=== PATIENT | male | born 1960 | race African-American/Black ===

== ENCOUNTER 2017-02-09 13:28 | Observation (INO) ==
[2017-02-09] MEDS ORDERED: NITROGLYCERIN 2% OINT 1 INCH/GM PACK TOP STA (13:47)
[2017-02-09] MEDS ORDERED: ASPIRIN 325 MG TABLET PO STA (13:47)
[2017-02-09] MEDS ORDERED: METOPROLOL TARTRATE 5 MG/5 ML VIAL IV STA (13:47)
[2017-02-09] MEDS ORDERED: NITROGLYCERIN SL 0.4 MG TABLET SL PRN (13:47)
--- NOTE | 2017-02-09 13:51 | EKG Report ---
Stationary ECG Study [facility] ER Test Date: 02/09/2017 1:35:39 PM Pat Name: ALEJANDRO GARCIA Department: Room: Gender: M [employer]: : [id number] Requested by: Robin Adler Order Number: [id number] Reading MD: AME SHAY Intervals [place] Rate: 84 P: 55 TN: 120 QRS: -2 QRSD: 73 T: -14 QT: 386 QTc: 427 Interpretive Statements SINUS RHYTHM WITH SINUS ARRHYTHMIA VOLTAGE CRITERIA FOR LVH Electronically Signed On 02-10-17 18:31:41 CDT by AME SHAY [email or web address]
[2017-02-09 14:03] LABS: Basophils % 0.3 % (0.0-0.8); Eosinophils % 0.2 % (0.00-10.9); Hematocrit 35.5 VOL% (42.0-52.0); Hemoglobin 11.9 GM/DL (14.0-18.0); Immature Granulocytes % 0.2 %; Immature Granulocytes Absolute 0.01 #; Lymphocytes # 1.5 10*3/uL (1.4-4.0); Lymphocytes % 26.4 % (21.2-54.2); Mean Corpuscular HGB Conc 33.5 GM/DL (32-36); Mean Corpuscular Hemoglobin 26 PG (27-34); Mean Corpuscular Volume 77.2 FL (87-102); Mean Platelet Volume 10.3 FL (9.6-12.0); Monocytes # 0.4 10*3/uL (0.11-0.8); Monocytes % 6.8 % (1.7-12.7); Neutrophils # 3.8 10*3/uL (1.4-7.4); Neutrophils % 66.1 % (38.7-73.9); Platelet Count 263 T/CUMM (130-400); Red Cell Distribution Width 13.3 % (9.3-17.3); White Blood Count 5.7 T/CUMM (4-12)
--- NOTE | 2017-02-09 14:04 | XRay Report ---
XR chest 1V portable Indication: Chest pain Comparison: 07 February 2009 Findings: The heart and mediastinum are normal in size and configuration. The pulmonary vascularity is normal in caliber. No lung infiltrates, effusions, pneumothorax or other abnormality is demonstrated. Impression: Normal chest x-ray PROCEDURE INTERPRETED AT [facility] DEPARTMENT OF RADIOLOGY Final Report Signed by: Dr. Aleks Zavala
[2017-02-09] MEDS ORDERED: NITROGLYCERIN 2% OINT 1 INCH/GM PACK TOP ONE (14:06)
[2017-02-09] MEDS ORDERED: METOPROLOL TARTRATE 5 MG/5 ML VIAL IV ONE (14:07)
[2017-02-09] MEDS ORDERED: ASPIRIN 325 MG TABLET ONE (14:07)
[2017-02-09] MEDS ORDERED: NITROGLYCERIN SL 0.4 MG TABLET SL ONE (14:07)
[2017-02-09 14:31] LABS: Albumin 3.7 G/DL (3.4-5.0); Bilirubin,Total 0.4 MG/DL (0.2-1.0); Calcium 9.5 MG/DL (8.5-10.1); Osmolality,Calculated 279.3 MOS/KG (273-304); Potassium 3.8 MMOL/L (3.5-5.1); Total Protein 7.7 G/DL (6.4-8.3)
--- NOTE | 2017-02-09 15:36 | Emergency Department Note ---
Ryne Larose Brittany, am scribing for, and in the presence of, Miguel Molina MD 13:51. Jesse Larose Doug C, MD, personally performed the services described in this documentation, ascribed by Joanne Michele in my presence, and it is both accurate and complete 413 . Arrival - Arrival Chief Complaint: Chest Pain Stated Complaint: chest pain ED Nursing Triage Note: C/o sharp, right side chest pain radiating down right arm-onset 1230 today. Reports pain worse with movement and palpation. Denies SOB or N/V. Mode of Arrival: Wheelchair Limitations: No Limitations Source: Patient, Family Time Seen by Provider: 02/09/17 13:40 - History of Present Illness HPI Narrative: Patient's a 56-year-old black male who presented to the emergency room complaining of right sided chest pain that started approximately an hour ago. 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 Patient states the pain is a sharp stabbing pain in his right chest and radiates down his right arm. He had some nausea and slight diaphoresis but had no vomiting or shortness of breath. He did note that he had some increased pain when he did take a deep breath. Patient states his pain is much better now but still persisting. He is never had anything like this before and has no history of heart problems. There is a history of lumbar disc disease but no cervical disc problems. There is a positive family history in 1 of his brothers had a heart attack in his 60s. Onset (ago): hour(s) (Started at 1230) Consistency: constant Severity: moderate Quality: stabbing, sharp Allergies/Adverse Reactions: Allergies Allergy/AdvReac Type Severity Reaction Status Date / Time No Known Allergies Allergy Verified 02/09/17 13:37 Home Medications: Home Medications Medication Instructions Recorded Confirmed Type Gabapentin [Gabapentin] 300 mg PO TID 02/09/17 02/09/17 History Morphine Sulfate [Morphine ER Cap] 45 mg PO QAM 02/09/17 02/09/17 History Oxycodone HCl/Acetaminophen 1 each PO BID 02/09/17 02/09/17 History [Percocet 7.5-325 mg Tablet] Tizanidine HCl [Zanaflex] 4 mg PO DAILY 02/09/17 02/09/17 History Review of System - Review of System 12 point system: reviewed and no additional remarkable complaints except as stated - Review of System Constitutional: Present: diaphoresis Cardiovascular: Present: chest pain. Absent: dyspnea on exertion Gastrointestinal: Present: nausea Medical,Surgical,& Family Hx - Medical History Musculoskeletal: History of: Back/Neck Problems (chronic lower back pain) - Surgical History Orthopedic Surgeries: Surgical HX of;: Spinal Surgery - Family History Family History: Reports;: Family Heart Disease (Brother of a heart attack in his 60s) - Social History Smoking Status: Never smoker Frequency of Alcohol Use: None Type of Drug Use: None Exam Vital Signs: Vital Signs Temperature 97.9 F 02/09/17 13:34 Pulse Rate 84 02/09/17 13:34 Respiratory Rate 16 02/09/17 13:34 Blood Pressure 157/91 02/09/17 13:34 O2 Sat by Pulse Oximetry 97 02/09/17 13:34 - General General appearance: alert, in no apparent distress - Head Head exam: Present: atraumatic, normocephalic, normal inspection - Eye Eye exam: Present: normal appearance, PERRL, EOMI. Absent: scleral icterus, conjunctival injection, nystagmus, miosis, mydriasis - ENT ENT exam: Present: normal exam, normal oropharynx, mucous membranes moist, normal external ear exam - Neck Neck exam: Present: normal inspection, full ROM, trachea midline. Absent: tenderness, meningismus, lymphadenopathy, thyromegaly - Chest Chest inspection: Present: symmetric chest wall rise, tenderness (Chest wall tenderness). Absent: rash, abscess - Respiratory Respiratory exam: Present: normal lung sounds bilaterally. Absent: prolonged expiratory phase, rales, respiratory distress, rhonchi, stridor, wheezes - Cardiovascular Cardiovascular exam: Present: regular rate, normal rhythm, normal heart sounds. Absent: murmur, rubs, gallop, clicks, JVD - Abdominal Exam Abdominal exam: Present: soft, normal bowel sounds. Absent: distention, tenderness, guarding, rebound, rigidity - Rectal Exam Rectal exam: Present: deferred - Extremities Exam Extremities exam: Present: normal inspection, full ROM, normal capillary refill. Absent: tenderness, pedal edema, joint swelling, calf tenderness - Back Exam Back exam: Present: normal inspection, full ROM. Absent: tenderness, muscle spasm, rashes - Neurological Exam Neurological exam: Present: alert, oriented X3, CN II-XII intact. Absent: motor sensory deficit - Psychiatric Psychiatric exam: Present: normal affect, normal mood. Absent: depressed, agitated, anxious, flat affect, manic - Skin Skin exam: Present: warm, dry, intact, normal color. Absent: rash, cyanosis, diaphoresis, erythema, pallor, mottled Course Course Narrative: Patient's clinical presentation, laboratory and radiograph findings were discussed with Carmen who is covering the hospitalist service. She will arrange patient be seen in emergency room and evaluated for admission. Patient is now pain-free. Results - Labs CBC & BMP: 02/09/17 13:51 02/09/17 13:51 Lab Results: I have reviewed the patients labs Labs: Laboratory Tests 02/09/17 02/09/17 02/09/17 13:51 13:51 13:51 D-Dimer, Quantitative <= 0.5 Sodium 141 Potassium 3.8 Chloride 108 H Carbon Dioxide 25 Anion Gap 11.8 BUN 10 Creatinine 1.10 GFR Calculation 112 BUN/Creatinine Ratio 9.00 Glucose 101 Calculated Osmolality 279.3 Calcium 9.5 Total Bilirubin 0.40 AST 20 ALT 19 Alkaline Phosphatase 97 Troponin I < 0.015 Total Protein 7.7 Albumin 3.7 Globulin 4.0 H Albumin/Globulin Ratio 0.9 L Laboratory Tests 02/09/17 02/09/17 02/09/17 13:51 13:51 13:51 WBC 5.7 RBC 4.60 Hgb 11.9 L Hct 35.5 L MCV 77.2 L MCH 26 L MCHC 33.5 RDW 13.3 Plt Count 263 MPV 10.3 Neut % (Auto) 66.1 Lymph % (Auto) 26.4 [place] % (Auto) 6.8 Eos % (Auto) 0.2 Baso % (Auto) 0.3 Neut # (Auto) 3.8 Lymph # (Auto) 1.5 [place] # (Auto) 0.4 Eos # (Auto) 0.0 Baso # (Auto) 0.0 Immature Gran % 0.2 Nucleated RBC % 0.0 Immature Gran # 0.01 Nucleated RBCs # 0.00 D-Dimer, Quantitative <= 0.5 Sodium 141 Potassium 3.8 Chloride 108 H Carbon Dioxide 25 Anion Gap 11.8 BUN 10 Creatinine 1.10 GFR Calculation 112 BUN/Creatinine Ratio 9.00 Glucose 101 Calculated Osmolality 279.3 Calcium 9.5 Total Bilirubin 0.40 AST 20 ALT 19 Alkaline Phosphatase 97 Troponin I Total Protein 7.7 Albumin 3.7 Globulin 4.0 H Albumin/Globulin Ratio 0.9 L 02/09/17 13:51 WBC RBC Hgb Hct MCV MCH MCHC RDW Plt Count MPV Neut % (Auto) Lymph % (Auto) [place] % (Auto) Eos % (Auto) Baso % (Auto) Neut # (Auto) Lymph # (Auto) [place] # (Auto) Eos # (Auto) Baso # (Auto) Immature Gran % Nucleated RBC % Immature Gran # Nucleated RBCs # D-Dimer, Quantitative Sodium Potassium Chloride Carbon Dioxide Anion Gap BUN Creatinine GFR Calculation BUN/Creatinine Ratio Glucose Calculated Osmolality Calcium Total Bilirubin AST ALT Alkaline Phosphatase Troponin I < 0.015 Total Protein Albumin Globulin Albumin/Globulin Ratio - EKG EKG results: interpreted by DANIEL, sinus rhythm (84 bpm), no acute changes - Diagnostic Findings Procedure: Chest x-ray: report reviewed by me (Normal Chest Xray. ) Disposition Clinical Impression: Atypical chest pain Case discussed with: patient, patient's family Disposition: Still a Patient Condition: Stable Time of Disposition: 15:36
--- NOTE | 2017-02-09 16:35 | Hospitalist History & Physical ---
<Tammy Vanegas - Last Filed: 02/09/17 17:14> Assessment and Plan (1) Atypical chest pain Status: Acute Assessment and plan: Admit to telemetry. CXR is stable. Cardiac monitoring. Serial cardiac enzymes and EKGs. Order Echo. Start daily asa. Consult cardiology. Current Visit: Yes (2) Chronic back pain Status: Chronic Assessment and plan: Pt. is seen by Dr. Jones for chronic back pain and has a back stimulator present. Current Visit: Yes History of Present Illness Chief complaint: chest pain History of present illness: Mr. Calderón is a 56 year old black male with a history of chronic back pain that presented to the ED today for further evaluation of chest pain. 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 He recalls returning back to his seat and immediately began to experience right sided chest pain. Pt. states that the pain radiated down his arm and into his fingers causing his arm to become numb. Pt. also began to sweat profusely. He denies vomiting, loss of consciousness, slurred speech, or any vision changes but does report feeling nauseous at the time. Pt. denies ever having anything like this happen to him before. He states that his brother did have a heart attack at the age of 60. Initial troponins are negative. CXR is stable. Pt's case has been discussed with Dr. Elkins and the patient will be admitted to the hospitalist service for a workup. Home Medications Medication Instructions Recorded Confirmed Type Gabapentin [Gabapentin] 300 mg PO TID 02/09/17 02/09/17 History Morphine Sulfate [Morphine ER Cap] 45 mg PO QAM 02/09/17 02/09/17 History Oxycodone HCl/Acetaminophen 1 each PO BID 02/09/17 02/09/17 History [Percocet 7.5-325 mg Tablet] Tizanidine HCl [Zanaflex] 4 mg PO DAILY 02/09/17 02/09/17 History Allergies Allergy/AdvReac Type Severity Reaction Status Date / Time No Known Allergies Allergy Verified 02/09/17 13:37 Medical,Surgical,& Family Hx - Medical History Musculoskeletal: History of: Back/Neck Problems (chronic lower back pain) - Surgical History Orthopedic Surgeries: Surgical HX of;: Spinal Surgery - Family History Family History: Reports;: Family Diabetes, Family Heart Disease (Brother of a heart attack in his 60s) - Social History Smoking Status: Never smoker Frequency of Alcohol Use: None Type of Drug Use: None Marital Status: Lives With:: Spouse Functional capacity: independent ambulation - Constitutional Constitutional: Absent: chills, fever(s), weakness - EENT Eyes: Absent: loss of vision, requires corrective lense Nose, mouth and throat: Absent: dysphagia, headache(s) - Cardiovascular Cardiovascular: Present: chest pain at rest, diaphoresis. Absent: dyspnea on exertion, edema, radiating jaw, neck or arm pain, lightheadedness - Respiratory Respiratory: Absent: cough - Gastrointestinal Gastrointestinal: Absent: abdominal pain, nausea, vomiting - Genitourinary Genitourinary: Absent: difficulty urinating, hematuria - Musculoskeletal Musculoskeletal: Present: back pain - Neurological Neurological: Absent: confusion - Psychiatric Psychiatric: Absent: anxiety, depression - Hematologic/Lymphatic Hematologic/Lymphatic: Absent: easy bleeding Exam - Constitutional Vitals: Period Temp Pulse Resp BP Sys/Foster Pulse Ox Last 24 Hr 97.9 F-97.9 F 70-84 16-19 122-163/78-91 97-98 General appearance: normal weight, no acute distress - Head Head exam: Present: normal inspection, normocephalic - Eye Eye exam: Present: EOMI Pupils: Present: CYNTHIA - Neck Neck exam: Present: normal inspection - Respiratory Respiratory exam: Present: clear to auscultation bilaterally. Absent: wheezes - Cardiovascular Cardiovascular exam: Present: regular rate and rhythm - GI/Abdominal GI/Abdominal exam: Present: normal bowel sounds, soft. Absent: tenderness - Extremities Exam Extremities exam: Present: normal capillary refill, full ROM. Absent: edema - Neurological Exam Neurological exam: Present: alert, oriented X3 - Psychiatric Psychiatric exam: Present: normal affect, normal mood - Skin Skin exam: Present: normal color, warm, dry Results - Labs CBC & BMP: 02/09/17 13:51 02/09/17 13:51 Lab Results: I have reviewed the past 24 hour labs <Pam Elkins - Last Filed: 02/09/17 20:18> History of Present Illness History of present illness: Mr. Calderón is a 56 year old male whose brother had a heart attack at the age of 60 presents with a right sided chest pain radiating down the right arm.First set of cardiac enzymes was negative.Patient was seen., examined and discussed with the APPLE TURNER. plan Telemetry serial cardiac enzymes stress test Cardiology consult ASA, bblockers, AECI, nitrates lipids, TSH, D-dimers, HbA1c GI, DVT prophylaxis Exam - Constitutional Vitals: Period Temp Pulse Resp BP Sys/Foster Pulse Ox Last 24 Hr 97.4 F-97.9 F 67-84 16-20 113-163/67-91 95-99 Results - Labs CBC & BMP: 02/09/17 13:51 02/09/17 13:51
[2017-02-09] MEDS ORDERED: ENOXAPARIN 40 MG/0.4 ML SYRINGE SUBCUT SCH (18:02)
[2017-02-09] MEDS ORDERED: ONDANSETRON 4 MG/2 ML VIAL IV PRN (18:02)
[2017-02-09] MEDS ORDERED: ACETAMINOPHEN 325 MG TABLET PO PRN (18:02)
[2017-02-09] MEDS ORDERED: DOCUSATE SODIUM 100 MG CAPSULE PO PRN (18:02)
[2017-02-09] MEDS ORDERED: PNEUMOCOCCAL VACCINE (23 VALENT) 0.5 ML VIAL IM ONE (18:28)
[2017-02-09] MEDS: METOPROLOL TARTRATE 25 MG TABLET PO SCH (21:53)
[2017-02-09 22:27] LABS: Apearance,Urine CLEAR (Clear); Bilirubin,Urine Negative (Negative); Blood, Urine Negative (Negative); Glucose,Urine (UA) Negative (Negative); Ketones,Urine Negative (Negative); Mucus,Urine Occasional /LPF (Occasional); Nitrite,Urine Negative (Negative); Protein,Urine Negative; RBC,Urine 1 /HPF (0-4); Squamous Epithelial Cell,Urine Occasional /HPF (0-10); Urine Color Yellow (Yellow); Urine Specific Gravity 1.014 (1.001-1.035); Urine Urobilinogen < 2.0 EU/DL (0.2-1.0); WBC,Urine 1 /HPF (0-6)
[2017-02-10 04:55] LABS: Basophils % 0.2 % (0.0-0.8); Eosinophils % 0.7 % (0.00-10.9); Hematocrit 32.8 VOL% (42.0-52.0); Hemoglobin 11.2 GM/DL (14.0-18.0); Immature Granulocytes % 0.2 %; Immature Granulocytes Absolute 0.01 #; Lymphocytes % 34.2 % (21.2-54.2); Mean Corpuscular HGB Conc 34.1 GM/DL (32-36); Mean Corpuscular Hemoglobin 26 PG (27-34); Mean Corpuscular Volume 77.4 FL (87-102); Mean Platelet Volume 10.3 FL (9.6-12.0); Monocytes # 0.6 10*3/uL (0.11-0.8); Monocytes % 9.8 % (1.7-12.7); Neutrophils # 3.1 10*3/uL (1.4-7.4); Neutrophils % 54.9 % (38.7-73.9); Platelet Count 241 T/CUMM (130-400); Red Blood Count 4.24 MC/CUMM (3.8-5.5); Red Cell Distribution Width 13.4 % (9.3-17.3); White Blood Count 5.7 T/CUMM (4-12)
[2017-02-10 05:33] LABS: Calcium 8.8 MG/DL (8.5-10.1); Magnesium 2.1 MG/DL (1.8-2.4); Osmolality,Calculated 283.1 MOS/KG (273-304); Potassium 3.9 MMOL/L (3.5-5.1); Risk Ratio 3.14; Thyroid Stimulating Hormone 0.353 uIU/ml (0.358-3.74); VLDL CHOLESTEROL 16.8 MG/DL
[2017-02-10] MEDS ORDERED: IBUPROFEN 600 MG TABLET PO PRN (06:09)
--- NOTE | 2017-02-10 08:59 | Hospitalist Progress Note ---
Assessment and Plan - Time spent with patient Time spent with patient: Less than 30 minutes (1) Atypical chest pain Status: Acute Assessment and plan: Patient troponin all negative. BNP 15. Cardiology is following. He is having a stress test this a.m. will repeat a.m. labs. Current Visit: Yes Hospitalist: Subjective Interval history: Patient verbalized feeling good this morning, "just hungry" patient verbalized having a stress test this a.m. Will follow up test and results. Denies chest pain, shortness of breath, fever or chills throughout the night. Exam - Constitutional Vitals: Period Temp Pulse Resp BP Sys/Foster Pulse Ox Last 24 Hr 97.4 F-99.9 F 54-84 16-20 113-163/67-91 94-99 General appearance: normal weight - Head Head exam: Present: normal inspection - Eye Eye exam: Present: EOMI Pupils: Present: CYNTHIA - Neck Neck exam: Present: normal inspection - Respiratory Respiratory exam: Present: clear to auscultation bilaterally. Absent: stridor, wheezes - Cardiovascular Cardiovascular exam: Present: regular rate and rhythm - GI/Abdominal GI/Abdominal exam: Present: normal bowel sounds. Absent: ascites, tenderness, rebound - Extremities Exam Extremities exam: Present: normal inspection, full ROM. Absent: edema - Neurological Exam Neurological exam: Present: alert, oriented X3, CN II-XII intact - Psychiatric Psychiatric exam: Present: normal affect, normal mood - Skin Skin exam: Present: normal color, warm, dry Results - Labs CBC & BMP: 02/10/17 04:17 02/10/17 04:17 Lab Results: I have reviewed the past 24 hour labs
[2017-02-10] MEDS ORDERED: ASPIRIN CHEW 81 MG TABLET PO SCH (09:00)
[2017-02-10] MEDS ORDERED: PANTOPRAZOLE 40 MG TABLET PO SCH (09:00)
[2017-02-10] MEDS ORDERED: LISINOPRIL 2.5 MG TABLET PO SCH (09:00)
--- NOTE | 2017-02-10 10:09 | Cardiology Consult Note ---
<Viji Camilo E - Last Filed: 02/10/17 09:37> Assessment and Plan - Time spent with patient Time spent with patient: Greater than 30 minutes (1) Hypertension Status: Chronic Assessment and plan: SEE PLAN OF CARE LISTED BELOW Current Visit: Yes (2) Microcytic anemia Status: Acute Assessment and plan: SEE PLAN OF CARE LISTED BELOW Current Visit: Yes (3) Atypical chest pain Status: Acute Assessment and plan: SEE PLAN OF CARE LISTED BELOW Current Visit: Yes (4) Chronic back pain Status: Chronic Assessment and plan: SEE PLAN OF CARE LISTED BELOW Current Visit: Yes History of Present Illness - Data of Consult Patient: new to practice Consult date: 02/10/17 Requesting Physician: Pam Elkins - Consult Narrative Reason for consult: right shoulder pain History of present illness: 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 MEREDITH Mr. Calderón, 56BM, with no prior cardiac history but risk factors significant for : hypertension, family history of CAD (brother who from ID at age 60). 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 Described as "sharp shooting pain" radiating from the right shoulder down to his fingertips. This waxed and waned for several hours. No diaphoresis but mild nausea was noted. He can identify no aggravating nor any alleviating factors. Rates the discomfort as a 7 on a scale of 1-10. Currently chest pain-free. Cardiac biomarkers negative, EKG reveals nonspecific ST, T-wave changes. Chest x-ray stable. LDL 100. Patient is normally fairly active and believes he can take 2 flights of stairs without having chest pain, heaviness, tightness or shortness of breath. Patient is currently NPO. Will further discuss with Dr. Meredith and await additional recommendations. ASSESSMENT/PLAN: 1. RIGHT chest, SHOULDER AND ARM PAIN - is currently pain-free. NPO for additional work-up today. 2. HYPERTENSION - usually well-controlled. 3. MICROCYTIC ANEMIA - adding stool for occult blood, anemia profile. CC: Helene Salgado MD - Home Medications and Allergies Home Medications: Home Medications Medication Instructions Recorded Confirmed Type Gabapentin [Gabapentin] 300 mg PO TID 02/09/17 02/09/17 History Morphine Sulfate [Morphine ER Cap] 45 mg PO QAM 02/09/17 02/09/17 History Oxycodone HCl/Acetaminophen 1 each PO BID 02/09/17 02/09/17 History [Percocet 7.5-325 mg Tablet] Tizanidine HCl [Zanaflex] 4 mg PO DAILY 02/09/17 02/09/17 History Allergies/Adverse Reactions: Allergies Allergy/AdvReac Type Severity Reaction Status Date / Time acetaminophen Allergy Severe ITCHING Verified 02/10/17 06:13 Review of systems: REVIEW OF SYSTEMS: - Constitutional Constitutional: Denies fatigue. Absent: syncope, anorexia, night sweats - EENT Eyes: Absent: blurry vision, loss of vision, diplopia Ears: Absent: decreased hearing, ear pain, ear discharge - Cardiovascular Cardiovascular: Denies chest pain with exertion, dyspnea on exertion, edema, palpitations. Absent: chest pain with deep breath, claudication, - Respiratory Respiratory: Denies THOMASON, cough. Absent: wheezing, hemoptysis, change in phlegm color - Gastrointestinal Gastrointestinal: Denies: constipation. Absent: adbominal pain, hematemesis, hematochezia, melena, change in bowel habits, nausea - Genitourinary Genitourinary: Absent: difficulty urinating, dysuria, urinary hesitancy, flank pain - Musculoskeletal Musculoskeletal: Present: Lower back pain Absent: joint swelling, muscle cramps , muscle weakness - Neurological Neurological: Present: normal gait without frequent falls. Absent: dizziness, hemiparesis - Psychiatric Psychiatric: Absent: anxiety, depression, difficulty concentrating - Endocrine Endocrine: Denies: fatigue. Absent: cold intolerance, heat intolerance, polyuria, polyphagia, polydipsia - Hematologic/Lymphatic Hematologic/Lymphatic: Present: easy bruising. Absent: easy bleeding -Integumentary Integumentary: Absent: lesions, rashes, skin breakdown Medical,Surgical,& Family Hx - Medical History Musculoskeletal: History of: Back/Neck Problems (chronic lower back pain) Hematology: No history of: Anemia, Blood Disorders - Surgical History Abdominal Surgeries: Surgical HX of: Colonoscopy Orthopedic Surgeries: Surgical HX of;: Spinal Surgery (stimulator) - Family History Family History: Reports;: Family Diabetes, Family Heart Disease (Brother of a heart attack in his 60s) - Social History Smoking Status: Never smoker Frequency of Alcohol Use: None Type of Drug Use: None Physical Examination Vital Signs Temp Pulse Resp BP Pulse Ox 97.9 F 84 16 157/91 97 02/09/17 13:34 02/09/17 13:34 02/09/17 13:34 02/09/17 13:34 02/09/17 13:34 Exam: General: [Appears well with no apparent distress.] [Pleasant and cooperative. ] [Appears comfortable.] HEENT: [PERRL, normocephalic, atraumatic. Mucous membranes moist. No jaundice noted. Conjunctiva moist and clear, sclerae anicteric] Neck: No JVD/HJR, no thyromegaly or lymphadenopathy noted. No carotid bruit appreciated Cardiac: [Regular rate and rhythm.] [No murmur rub or gallop.] Lungs: [Clear to auscultation without accessory muscle use to assist the respiratory pattern.] Requiring oxygen Abdomen: Soft, bowel sounds normoactive. Nontender and nondistended. No abdominal bruit or thrill noted. No masses noted. Musculoskeletal: No fluid collection. Decreased range of motion is noted. Extremities: No clubbing, cyanosis noted. [ No edema noted.] Upper extremity pulses 2+. Lower extremity pulses 2+. Capillary refill less than 3 seconds. Skin: No unusual lesions or rashes. No skin breakdown appreciated. Neuro: Awake, alert and oriented 3. Moves all extremities well without hemiparesis or paralysis. No essential tremor is appreciated. Result/EKG - Labs CBC & BMP: 02/10/17 04:17 02/10/17 04:17 Lab Results: I have reviewed the past 24 hour labs Labs: Laboratory Results - last 24 hr 02/09/17 02/09/17 02/09/17 13:51 13:51 13:51 WBC 5.7 RBC 4.60 Hgb 11.9 L Hct 35.5 L MCV 77.2 L MCH 26 L MCHC 33.5 RDW 13.3 Plt Count 263 MPV 10.3 Neut % (Auto) 66.1 Lymph % (Auto) 26.4 [place] % (Auto) 6.8 Eos % (Auto) 0.2 Baso % (Auto) 0.3 Neut # (Auto) 3.8 Lymph # (Auto) 1.5 [place] # (Auto) 0.4 Eos # (Auto) 0.0 Baso # (Auto) 0.0 Immature Gran % 0.2 Nucleated RBC % 0.0 Immature Gran # 0.01 Nucleated RBCs # 0.00 D-Dimer, Quantitative <= 0.5 Sodium 141 Potassium 3.8 Chloride 108 H Carbon Dioxide 25 Anion Gap 11.8 BUN 10 Creatinine 1.10 GFR Calculation 112 BUN/Creatinine Ratio 9.00 Glucose 101 Hemoglobin A1c Calculated Osmolality 279.3 Calcium 9.5 Magnesium Total Bilirubin 0.40 AST 20 ALT 19 Alkaline Phosphatase 97 Troponin I B-Natriuretic Peptide Total Protein 7.7 Albumin 3.7 Globulin 4.0 H Albumin/Globulin Ratio 0.9 L Triglycerides Cholesterol LDL Cholesterol VLDL Cholesterol HDL Cholesterol Heart Disease Risk Ratio Free T4 TSH 3rd Generation Urine Color Urine Appearance Urine pH Ur Specific [place] Urine Protein Urine Glucose (UA) Urine Ketones Urine Blood Urine Nitrate Urine Bilirubin Urine Urobilinogen Urine Leukocytes Urine RBC Urine WBC Ur Squamous Epith Cells Urine Mucus Ur Culture Indicated? 02/09/17 02/09/17 02/09/17 13:51 18:23 20:54 WBC RBC Hgb Hct MCV MCH MCHC RDW Plt Count MPV Neut % (Auto) Lymph % (Auto) [place] % (Auto) Eos % (Auto) Baso % (Auto) Neut # (Auto) Lymph # (Auto) [place] # (Auto) Eos # (Auto) Baso # (Auto) Immature Gran % Nucleated RBC % Immature Gran # Nucleated RBCs # D-Dimer, Quantitative Sodium Potassium Chloride Carbon Dioxide Anion Gap BUN Creatinine GFR Calculation BUN/Creatinine Ratio Glucose Hemoglobin A1c Calculated Osmolality Calcium Magnesium Total Bilirubin AST ALT Alkaline Phosphatase Troponin I < 0.015 < 0.015 < 0.015 B-Natriuretic Peptide Total Protein Albumin Globulin Albumin/Globulin Ratio Triglycerides Cholesterol LDL Cholesterol VLDL Cholesterol HDL Cholesterol Heart Disease Risk Ratio Free T4 TSH 3rd Generation Urine Color Urine Appearance Urine pH Ur Specific [place] Urine Protein Urine Glucose (UA) Urine Ketones Urine Blood Urine Nitrate Urine Bilirubin Urine Urobilinogen Urine Leukocytes Urine RBC Urine WBC Ur Squamous Epith Cells Urine Mucus Ur Culture Indicated? 02/09/17 02/09/17 02/10/17 20:54 22:00 04:17 WBC 5.7 RBC 4.24 Hgb 11.2 L Hct 32.8 L MCV 77.4 L MCH 26 L MCHC 34.1 RDW 13.4 Plt Count 241 MPV 10.3 Neut % (Auto) 54.9 Lymph % (Auto) 34.2 [place] % (Auto) 9.8 Eos % (Auto) 0.7 Baso % (Auto) 0.2 Neut # (Auto) 3.1 Lymph # (Auto) 2.0 [place] # (Auto) 0.6 Eos # (Auto) 0.0 Baso # (Auto) 0.0 Immature Gran % 0.2 Nucleated RBC % 0.0 Immature Gran # 0.01 Nucleated RBCs # 0.00 D-Dimer, Quantitative <= 0.5 Sodium Potassium Chloride Carbon Dioxide Anion Gap BUN Creatinine GFR Calculation BUN/Creatinine Ratio Glucose Hemoglobin A1c Calculated Osmolality Calcium Magnesium Total Bilirubin AST ALT Alkaline Phosphatase Troponin I B-Natriuretic Peptide Total Protein Albumin Globulin Albumin/Globulin Ratio Triglycerides Cholesterol LDL Cholesterol VLDL Cholesterol HDL Cholesterol Heart Disease Risk Ratio Free T4 TSH 3rd Generation Urine Color Yellow Urine Appearance Clear Urine pH 6.0 Ur Specific [place] 1.014 Urine Protein Negative Urine Glucose (UA) Negative Urine Ketones Negative Urine Blood Negative Urine Nitrate Negative Urine Bilirubin Negative Urine Urobilinogen < 2.0 H Urine Leukocytes Negative Urine RBC 1 Urine WBC 1 Ur Squamous Epith Cells Occasional Urine Mucus Occasional Ur Culture Indicated? Not indicated 02/10/17 02/10/17 02/10/17 04:17 04:17 04:17 WBC RBC Hgb Hct MCV MCH MCHC RDW Plt Count MPV Neut % (Auto) Lymph % (Auto) [place] % (Auto) Eos % (Auto) Baso % (Auto) Neut # (Auto) Lymph # (Auto) [place] # (Auto) Eos # (Auto) Baso # (Auto) Immature Gran % Nucleated RBC % Immature Gran # Nucleated RBCs # D-Dimer, Quantitative Sodium 142 Potassium 3.9 Chloride 108 H Carbon Dioxide 27 Anion Gap 10.9 BUN 15 Creatinine 1.00 GFR Calculation 126 BUN/Creatinine Ratio 15.00 Glucose 97 Hemoglobin A1c Calculated Osmolality 283.1 Calcium 8.8 Magnesium 2.1 Total Bilirubin AST ALT Alkaline Phosphatase Troponin I B-Natriuretic Peptide 15 Total Protein Albumin Globulin Albumin/Globulin Ratio Triglycerides 84 Cholesterol 157 LDL Cholesterol 100.0 VLDL Cholesterol 16.8 HDL Cholesterol 50 Heart Disease Risk Ratio 3.14 Free T4 1.25 TSH 3rd Generation 0.353 L Urine Color Urine Appearance Urine pH Ur Specific [place] Urine Protein Urine Glucose (UA) Urine Ketones Urine Blood Urine Nitrate Urine Bilirubin Urine Urobilinogen Urine Leukocytes Urine RBC Urine WBC Ur Squamous Epith Cells Urine Mucus Ur Culture Indicated? 02/10/17 04:17 WBC RBC Hgb Hct MCV MCH MCHC RDW Plt Count MPV Neut % (Auto) Lymph % (Auto) [place] % (Auto) Eos % (Auto) Baso % (Auto) Neut # (Auto) Lymph # (Auto) [place] # (Auto) Eos # (Auto) Baso # (Auto) Immature Gran % Nucleated RBC % Immature Gran # Nucleated RBCs # D-Dimer, Quantitative Sodium Potassium Chloride Carbon Dioxide Anion Gap BUN Creatinine GFR Calculation BUN/Creatinine Ratio Glucose Hemoglobin A1c 6.1 Calculated Osmolality Calcium Magnesium Total Bilirubin AST ALT Alkaline Phosphatase Troponin I B-Natriuretic Peptide Total Protein Albumin Globulin Albumin/Globulin Ratio Triglycerides Cholesterol LDL Cholesterol VLDL Cholesterol HDL Cholesterol Heart Disease Risk Ratio Free T4 TSH 3rd Generation Urine Color Urine Appearance Urine pH Ur Specific [place] Urine Protein Urine Glucose (UA) Urine Ketones Urine Blood Urine Nitrate Urine Bilirubin Urine Urobilinogen Urine Leukocytes Urine RBC Urine WBC Ur Squamous Epith Cells Urine Mucus Ur Culture Indicated? - Diagnostic Findings Procedure: Chest x-ray: report reviewed by me - EKG EKG results: interpreted by ca EKG shows: sinus rhythm <Dewayne Meredith - Last Filed: 02/10/17 10:01> History of Present Illness - Consult Narrative History of present illness: Cardiology addendum Patient examined chart reviewed and discussed with nurse Viji Camilo. Atypical right arm and shoulder chest pain. No history of exertional angina. Negative troponin 3. EKG shows sinus rhythm with ST-T wave changes only. Chest x-ray negative. Lifetime non-smoker and nondrinker. No history of diabetes. Patient is followed by Dr. Martinez. No history of hypertension. He was started on lisinopril and metoprolol last night. Brother from heart attack age 66. No GE reflux symptoms. No history of peptic ulcer. Denies melena. Patient does have microcytic anemia. MCV 77 hemoglobin 11.2. Chronic back pain status post TENS stimulator implant by Dr. Jones 2011. He takes morphine and oxycodone daily. Blood pressure 138/80 in the right arm by me. Regular rhythm no murmur or gallop. No chest wall tenderness. No carotid bruit. Abdomen soft benign. Good distal pulses. Impression atypical chest pain Hypertension Microcytic anemia Rule out obstructive sleep apnea. Patient does snore loudly and has daytime sleepiness. Plan Exercise cardiac stress test Outpatient sleep study Stool guaiac and anemia profile pending CC: Helene Salgado MD Physical Examination Vital Signs Temp Pulse Resp BP Pulse Ox 97.9 F 84 16 157/91 97 02/09/17 13:34 02/09/17 13:34 02/09/17 13:34 02/09/17 13:34 02/09/17 13:34 Result/EKG - Labs CBC & BMP: 02/10/17 04:17 02/10/17 04:17 Labs: Laboratory Results - last 24 hr 02/09/17 02/09/17 02/09/17 13:51 13:51 13:51 WBC 5.7 RBC 4.60 Hgb 11.9 L Hct 35.5 L MCV 77.2 L MCH 26 L MCHC 33.5 RDW 13.3 Plt Count 263 MPV 10.3 Neut % (Auto) 66.1 Lymph % (Auto) 26.4 [place] % (Auto) 6.8 Eos % (Auto) 0.2 Baso % (Auto) 0.3 Neut # (Auto) 3.8 Lymph # (Auto) 1.5 [place] # (Auto) 0.4 Eos # (Auto) 0.0 Baso # (Auto) 0.0 Immature Gran % 0.2 Nucleated RBC % 0.0 Immature Gran # 0.01 Nucleated RBCs # 0.00 D-Dimer, Quantitative <= 0.5 Sodium 141 Potassium 3.8 Chloride 108 H Carbon Dioxide 25 Anion Gap 11.8 BUN 10 Creatinine 1.10 GFR Calculation 112 BUN/Creatinine Ratio 9.00 Glucose 101 Hemoglobin A1c Calculated Osmolality 279.3 Calcium 9.5 Magnesium Total Bilirubin 0.40 AST 20 ALT 19 Alkaline Phosphatase 97 Troponin I B-Natriuretic Peptide Total Protein 7.7 Albumin 3.7 Globulin 4.0 H Albumin/Globulin Ratio 0.9 L Triglycerides Cholesterol LDL Cholesterol VLDL Cholesterol HDL Cholesterol Heart Disease Risk Ratio Free T4 TSH 3rd Generation Urine Color Urine Appearance Urine pH Ur Specific [place] Urine Protein Urine Glucose (UA) Urine Ketones Urine Blood Urine Nitrate Urine Bilirubin Urine Urobilinogen Urine Leukocytes Urine RBC Urine WBC Ur Squamous Epith Cells Urine Mucus Ur Culture Indicated? 02/09/17 02/09/17 02/09/17 13:51 18:23 20:54 WBC RBC Hgb Hct MCV MCH MCHC RDW Plt Count MPV Neut % (Auto) Lymph % (Auto) [place] % (Auto) Eos % (Auto) Baso % (Auto) Neut # (Auto) Lymph # (Auto) [place] # (Auto) Eos # (Auto) Baso # (Auto) Immature Gran % Nucleated RBC % Immature Gran # Nucleated RBCs # D-Dimer, Quantitative Sodium Potassium Chloride Carbon Dioxide Anion Gap BUN Creatinine GFR Calculation BUN/Creatinine Ratio Glucose Hemoglobin A1c Calculated Osmolality Calcium Magnesium Total Bilirubin AST ALT Alkaline Phosphatase Troponin I < 0.015 < 0.015 < 0.015 B-Natriuretic Peptide Total Protein Albumin Globulin Albumin/Globulin Ratio Triglycerides Cholesterol LDL Cholesterol VLDL Cholesterol HDL Cholesterol Heart Disease Risk Ratio Free T4 TSH 3rd Generation Urine Color Urine Appearance Urine pH Ur Specific [place] Urine Protein Urine Glucose (UA) Urine Ketones Urine Blood Urine Nitrate Urine Bilirubin Urine Urobilinogen Urine Leukocytes Urine RBC Urine WBC Ur Squamous Epith Cells Urine Mucus Ur Culture Indicated? 02/09/17 02/09/17 02/10/17 20:54 22:00 04:17 WBC 5.7 RBC 4.24 Hgb 11.2 L Hct 32.8 L MCV 77.4 L MCH 26 L MCHC 34.1 RDW 13.4 Plt Count 241 MPV 10.3 Neut % (Auto) 54.9 Lymph % (Auto) 34.2 [place] % (Auto) 9.8 Eos % (Auto) 0.7 Baso % (Auto) 0.2 Neut # (Auto) 3.1 Lymph # (Auto) 2.0 [place] # (Auto) 0.6 Eos # (Auto) 0.0 Baso # (Auto) 0.0 Immature Gran % 0.2 Nucleated RBC % 0.0 Immature Gran # 0.01 Nucleated RBCs # 0.00 D-Dimer, Quantitative <= 0.5 Sodium Potassium Chloride Carbon Dioxide Anion Gap BUN Creatinine GFR Calculation BUN/Creatinine Ratio Glucose Hemoglobin A1c Calculated Osmolality Calcium Magnesium Total Bilirubin AST ALT Alkaline Phosphatase Troponin I B-Natriuretic Peptide Total Protein Albumin Globulin Albumin/Globulin Ratio Triglycerides Cholesterol LDL Cholesterol VLDL Cholesterol HDL Cholesterol Heart Disease Risk Ratio Free T4 TSH 3rd Generation Urine Color Yellow Urine Appearance Clear Urine pH 6.0 Ur Specific [place] 1.014 Urine Protein Negative Urine Glucose (UA) Negative Urine Ketones Negative Urine Blood Negative Urine Nitrate Negative Urine Bilirubin Negative Urine Urobilinogen < 2.0 H Urine Leukocytes Negative Urine RBC 1 Urine WBC 1 Ur Squamous Epith Cells Occasional Urine Mucus Occasional Ur Culture Indicated? Not indicated 02/10/17 02/10/17 02/10/17 04:17 04:17 04:17 WBC RBC Hgb Hct MCV MCH MCHC RDW Plt Count MPV Neut % (Auto) Lymph % (Auto) [place] % (Auto) Eos % (Auto) Baso % (Auto) Neut # (Auto) Lymph # (Auto) [place] # (Auto) Eos # (Auto) Baso # (Auto) Immature Gran % Nucleated RBC % Immature Gran # Nucleated RBCs # D-Dimer, Quantitative Sodium 142 Potassium 3.9 Chloride 108 H Carbon Dioxide 27 Anion Gap 10.9 BUN 15 Creatinine 1.00 GFR Calculation 126 BUN/Creatinine Ratio 15.00 Glucose 97 Hemoglobin A1c Calculated Osmolality 283.1 Calcium 8.8 Magnesium 2.1 Total Bilirubin AST ALT Alkaline Phosphatase Troponin I B-Natriuretic Peptide 15 Total Protein Albumin Globulin Albumin/Globulin Ratio Triglycerides 84 Cholesterol 157 LDL Cholesterol 100.0 VLDL Cholesterol 16.8 HDL Cholesterol 50 Heart Disease Risk Ratio 3.14 Free T4 1.25 TSH 3rd Generation 0.353 L Urine Color Urine Appearance Urine pH Ur Specific [place] Urine Protein Urine Glucose (UA) Urine Ketones Urine Blood Urine Nitrate Urine Bilirubin Urine Urobilinogen Urine Leukocytes Urine RBC Urine WBC Ur Squamous Epith Cells Urine Mucus Ur Culture Indicated? 02/10/17 04:17 WBC RBC Hgb Hct MCV MCH MCHC RDW Plt Count MPV Neut % (Auto) Lymph % (Auto) [place] % (Auto) Eos % (Auto) Baso % (Auto) Neut # (Auto) Lymph # (Auto) [place] # (Auto) Eos # (Auto) Baso # (Auto) Immature Gran % Nucleated RBC % Immature Gran # Nucleated RBCs # D-Dimer, Quantitative Sodium Potassium Chloride Carbon Dioxide Anion Gap BUN Creatinine GFR Calculation BUN/Creatinine Ratio Glucose Hemoglobin A1c 6.1 Calculated Osmolality Calcium Magnesium Total Bilirubin AST ALT Alkaline Phosphatase Troponin I B-Natriuretic Peptide Total Protein Albumin Globulin Albumin/Globulin Ratio Triglycerides Cholesterol LDL Cholesterol VLDL Cholesterol HDL Cholesterol Heart Disease Risk Ratio Free T4 TSH 3rd Generation Urine Color Urine Appearance Urine pH Ur Specific [place] Urine Protein Urine Glucose (UA) Urine Ketones Urine Blood Urine Nitrate Urine Bilirubin Urine Urobilinogen Urine Leukocytes Urine RBC Urine WBC Ur Squamous Epith Cells Urine Mucus Ur Culture Indicated?
[2017-02-10 11:02] LABS: Basophils % 0.3 % (0.0-0.8); Eosinophils % 0.3 % (0.00-10.9); Hematocrit 37.2 VOL% (42.0-52.0); Hemoglobin 12.3 GM/DL (14.0-18.0); Immature Granulocytes % 0.2 %; Immature Granulocytes Absolute 0.01 #; Lymphocytes % 30.5 % (21.2-54.2); Mean Corpuscular HGB Conc 33.1 GM/DL (32-36); Mean Corpuscular Hemoglobin 26 PG (27-34); Mean Corpuscular Volume 78.5 FL (87-102); Mean Platelet Volume 10.1 FL (9.6-12.0); Monocytes # 0.6 10*3/uL (0.11-0.8); Monocytes % 8.6 % (1.7-12.7); Neutrophils # 3.9 10*3/uL (1.4-7.4); Neutrophils % 60.1 % (38.7-73.9); Platelet Count 274 T/CUMM (130-400); Red Blood Count 4.74 MC/CUMM (3.8-5.5); Red Cell Distribution Width 13.4 % (9.3-17.3); White Blood Count 6.4 T/CUMM (4-12)
--- NOTE | 2017-02-10 11:51 | Event Note ---
Underwent stress testing without difficulty. He easily obtained predicted target heart rate (8.1METs) without complaints of chest pain, heaviness, tightness or shortness of breath. Good exercise tolerance. No arrhythmia, no ST or T-wave changes noted. Of note, patient was moderately hypertensive at the completion of exercise (197/90). Now, patient will transition to nuclear medicine for final scan. Dr. Meredith to read, interpreted and advise.
[2017-02-10 12:00] LABS: Folate 8.3 NG/ML (5.4-24.0); Vitamin B12 830 PG/ML (211-911)
[2017-02-10 12:11] LABS: Sedimentation Rate-Westergren 37 MM/HR (0-20)
[2017-02-10] MEDS: METOPROLOL TARTRATE 25 MG TABLET PO SCH (12:17)
[2017-02-10 16:31] VITALS: BP 153/85
--- NOTE | 2017-02-10 16:39 | Discharge Summary ---
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 He ruled out for [place] and this morning he had an exercise stress test which was low risk. Dr Meredith does not recommend further cardiac eval at this time but wants to see him in his clinic in 4 weeks with echo. He will start lisinopril 10mg a day at discharge to treat his previously untreated HTN. He will also see Dr Echevarria, his PCP, in a week. - Time spent with patient Time with patient DS: Less than 30 minutes Diagnosis - Discharge Diagnosis (1) Atypical chest pain Status: Resolved (2) Chronic back pain Status: Chronic (3) Hypertension Status: Chronic Specialty Discharge - Follow Up or Referrals Follow up with: Dewayne Meredith MD [Physician] - (1 month F/U. Please schedule echo at [facility] same morning as appointment with Dr. Meredith RE: [facility]) Omega Echevarria MD [Physician] - 1 Week (HTN) Discharge Plan - Discharge Data Disposition: Disch To Home/Self Care Condition at Discharge: Stable Discharge Diet: heart healthy, low salt diet, other (consult with Dr Echevarria on ways to reduce calories to manage your weight) - Discharge Medications New Aspirin Chew Tab 81 mg PO DAILY tablet Lisinopril 10 mg PO DAILY #30 tablet Continue Tizanidine HCl [Zanaflex] 4 mg PO DAILY Morphine Sulfate [Morphine ER Cap] 45 mg PO QAM Gabapentin 300 mg PO TID Oxycodone HCl/Acetaminophen [Percocet 7.5-325 mg Tablet] 1 each PO BID - Follow Up or Referral Follow Up: Dewayne Meredith MD [Physician] - (1 month F/U. Please schedule echo at [facility] same morning as appointment with Dr. Meredith RE: [facility]) - Forms/Instructions Exam - Constitutional Vitals: Period Temp Pulse Resp BP Sys/Foster Pulse Ox Last 24 Hr 97.4 F-99.9 F 54-82 16-20 117-164/67-89 94-99 General appearance: no acute distress, morbidly obese - Head Head exam: Present: normocephalic, atraumatic - Eye Eye exam: Present: EOMI. Absent: scleral icterus - Respiratory Respiratory exam: Present: clear to auscultation bilaterally - Cardiovascular Cardiovascular exam: Present: regular rate and rhythm - GI/Abdominal GI/Abdominal exam: Present: normal bowel sounds, soft. Absent: tenderness - Extremities Exam Extremities exam: Absent: edema Discharge Results Procedures and tests throughout hospitalization: Pending Orders 02/09/17 20:16 NM lalo perf SPECT rest or str Routine 02/10/17 09:57 Occult Blood, Stool Routine 02/10/17 10:38 Anemia Profile Routine 02/11/17 04:00 Basic Metabolic Panel w/Mg IN AM Comp Blood Count Auto Diff IN AM Labs on day of discharge: Labs from last 24 hours 02/10/17 02/10/17 02/10/17 10:38 10:38 10:38 WBC RBC Hgb Hct MCV MCH MCHC RDW Plt Count MPV Neut % (Auto) Lymph % (Auto) [place] % (Auto) Eos % (Auto) Baso % (Auto) Neut # (Auto) Lymph # (Auto) Marion # (Auto) Eos # (Auto) Baso # (Auto) Immature Gran % Nucleated RBC % Immature Gran # Nucleated RBCs # Anemia Panel Interp ESR Westergren Absolute Retic Percent Retic Retic Hgb Equivalent D-Dimer, Quantitative Sodium Potassium Chloride Carbon Dioxide Anion Gap BUN Creatinine GFR Calculation BUN/Creatinine Ratio Glucose Hemoglobin A1c Calculated Osmolality Calcium Magnesium Ferritin 159.9 Troponin I B-Natriuretic Peptide Triglycerides Cholesterol LDL Cholesterol VLDL Cholesterol HDL Cholesterol Heart Disease Risk Ratio Vitamin B12 830 Folate 8.3 Free T4 TSH 3rd Generation Urine Color Urine Appearance Urine pH Ur Specific [place] Urine Protein Urine Glucose (UA) Urine Ketones Urine Blood Urine Nitrate Urine Bilirubin Urine Urobilinogen Urine Leukocytes Urine RBC Urine WBC Ur Squamous Epith Cells Urine Mucus Ur Culture Indicated? TAIWO (IgG-AHG) Negative TAIWO, Polyspecific Negative 02/10/17 02/10/17 02/10/17 10:38 04:17 04:17 WBC 6.4 RBC 4.74 Hgb 12.3 L Hct 37.2 L MCV 78.5 L MCH 26 L MCHC 33.1 RDW 13.4 Plt Count 274 MPV 10.1 Neut % (Auto) 60.1 Lymph % (Auto) 30.5 Marion % (Auto) 8.6 Eos % (Auto) 0.3 Baso % (Auto) 0.3 Neut # (Auto) 3.9 Lymph # (Auto) 2.0 Marion # (Auto) 0.6 Eos # (Auto) 0.0 Baso # (Auto) 0.0 Immature Gran % 0.2 Nucleated RBC % 0.0 Immature Gran # 0.01 Nucleated RBCs # 0.00 Anemia Panel Interp Pending ESR Westergren 37 H Absolute Retic 0.1 Percent Retic 1.7 H Retic Hgb Equivalent 29.6 D-Dimer, Quantitative Sodium Potassium Chloride Carbon Dioxide Anion Gap BUN Creatinine GFR Calculation BUN/Creatinine Ratio Glucose Hemoglobin A1c 6.1 Calculated Osmolality Calcium Magnesium Ferritin Troponin I B-Natriuretic Peptide Triglycerides Cholesterol LDL Cholesterol VLDL Cholesterol HDL Cholesterol Heart Disease Risk Ratio Vitamin B12 Folate Free T4 1.25 TSH 3rd Generation Urine Color Urine Appearance Urine pH Ur Specific [place] Urine Protein Urine Glucose (UA) Urine Ketones Urine Blood Urine Nitrate Urine Bilirubin Urine Urobilinogen Urine Leukocytes Urine RBC Urine WBC Ur Squamous Epith Cells Urine Mucus Ur Culture Indicated? TAIWO (IgG-AHG) TAIWO, Polyspecific 02/10/17 02/10/17 02/10/17 04:17 04:17 04:17 WBC 5.7 RBC 4.24 Hgb 11.2 L Hct 32.8 L MCV 77.4 L MCH 26 L MCHC 34.1 RDW 13.4 Plt Count 241 MPV 10.3 Neut % (Auto) 54.9 Lymph % (Auto) 34.2 Marion % (Auto) 9.8 Eos % (Auto) 0.7 Baso % (Auto) 0.2 Neut # (Auto) 3.1 Lymph # (Auto) 2.0 Marion # (Auto) 0.6 Eos # (Auto) 0.0 Baso # (Auto) 0.0 Immature Gran % 0.2 Nucleated RBC % 0.0 Immature Gran # 0.01 Nucleated RBCs # 0.00 Anemia Panel Interp ESR Westergren Absolute Retic Percent Retic Retic Hgb Equivalent D-Dimer, Quantitative Sodium 142 Potassium 3.9 Chloride 108 H Carbon Dioxide 27 Anion Gap 10.9 BUN 15 Creatinine 1.00 GFR Calculation 126 BUN/Creatinine Ratio 15.00 Glucose 97 Hemoglobin A1c Calculated Osmolality 283.1 Calcium 8.8 Magnesium 2.1 Ferritin Troponin I B-Natriuretic Peptide 15 Triglycerides 84 Cholesterol 157 LDL Cholesterol 100.0 VLDL Cholesterol 16.8 HDL Cholesterol 50 Heart Disease Risk Ratio 3.14 Vitamin B12 Folate Free T4 TSH 3rd Generation 0.353 L Urine Color Urine Appearance Urine pH Ur Specific [place] Urine Protein Urine Glucose (UA) Urine Ketones Urine Blood Urine Nitrate Urine Bilirubin Urine Urobilinogen Urine Leukocytes Urine RBC Urine WBC Ur Squamous Epith Cells Urine Mucus Ur Culture Indicated? TAIWO (IgG-AHG) TAIWO, Polyspecific 02/09/17 02/09/17 02/09/17 22:00 20:54 20:54 WBC RBC Hgb Hct MCV MCH MCHC RDW Plt Count MPV Neut % (Auto) Lymph % (Auto) Marion % (Auto) Eos % (Auto) Baso % (Auto) Neut # (Auto) Lymph # (Auto) Marion # (Auto) Eos # (Auto) Baso # (Auto) Immature Gran % Nucleated RBC % Immature Gran # Nucleated RBCs # Anemia Panel Interp ESR [place]estergren Absolute Retic Percent Retic Retic Hgb Equivalent D-Dimer, Quantitative <= 0.5 Sodium Potassium Chloride Carbon Dioxide Anion Gap BUN Creatinine GFR Calculation BUN/Creatinine Ratio Glucose Hemoglobin A1c Calculated Osmolality Calcium Magnesium Ferritin Troponin I < 0.015 B-Natriuretic Peptide Triglycerides Cholesterol LDL Cholesterol VLDL Cholesterol HDL Cholesterol Heart Disease Risk Ratio Vitamin B12 Folate Free T4 TSH 3rd Generation Urine Color Yellow Urine Appearance Clear Urine pH 6.0 Ur Specific [place] 1.014 Urine Protein Negative Urine Glucose (UA) Negative Urine Ketones Negative Urine Blood Negative Urine Nitrate Negative Urine Bilirubin Negative Urine Urobilinogen < 2.0 H Urine Leukocytes Negative Urine RBC 1 Urine WBC 1 Ur Squamous Epith Cells Occasional Urine Mucus Occasional Ur Culture Indicated? Not indicated TAIWO (IgG-AHG) TAIWO, Polyspecific 02/09/17 18:23 WBC RBC Hgb Hct MCV MCH MCHC RDW Plt Count MPV Neut % (Auto) Lymph % (Auto) [place] % (Auto) Eos % (Auto) Baso % (Auto) Neut # (Auto) Lymph # (Auto) [place] # (Auto) Eos # (Auto) Baso # (Auto) Immature Gran % Nucleated RBC % Immature Gran # Nucleated RBCs # Anemia Panel Interp ESR Westergren Absolute Retic Percent Retic Retic Hgb Equivalent D-Dimer, Quantitative Sodium Potassium Chloride Carbon Dioxide Anion Gap BUN Creatinine GFR Calculation BUN/Creatinine Ratio Glucose Hemoglobin A1c Calculated Osmolality Calcium Magnesium Ferritin Troponin I < 0.015 B-Natriuretic Peptide Triglycerides Cholesterol LDL Cholesterol VLDL Cholesterol HDL Cholesterol Heart Disease Risk Ratio Vitamin B12 Folate Free T4 TSH 3rd Generation Urine Color Urine Appearance Urine pH Ur Specific [place] Urine Protein Urine Glucose (UA) Urine Ketones Urine Blood Urine Nitrate Urine Bilirubin Urine Urobilinogen Urine Leukocytes Urine RBC Urine WBC Ur Squamous Epith Cells Urine Mucus Ur Culture Indicated? TAIWO (IgG-AHG) TAIWO, Polyspecific DS: Provider Date of admission: 02/09/17 15:35 Primary care physician: . No PCP Attending physician on admission: Pam Elkins MD Consults: 02/09/17 18:02 Consult to Physician [CONS] Routine Comment: chest pain Consulting Provider: Dewayne Meredith When should Consulting Provider be notified: In am Discharging clinician: Helene Salgado MD
--- NOTE | 2017-02-10 17:36 | ECHO Report ---
Roseanne Calderón Exam Date: 02/10/2017 09:15 Referring Physician: Technologist: lynnette Dinh ARDMS, RVT Age: 56 Ht (in): 69 Wt (lb): 240 Gender: M Exam Location: [facility] Echo Indications: Chest pain, unspecified, Diaphoresis, Chronic back pain BP: 136 / 74 HR: 70 Rhythm: Sinus Technical Quality: Good IMPRESSIONS EF 60 %. Grade I/IV diastolic dysfunction (abnormal relaxation filling pattern), normal to mildly elevated filling pressures. The right ventricle is normal in size and function. The right atrium is mildly enlarged. The left atrium is mildly enlarged. Morphologically normal mitral valve. Trace mitral valve regurgitation. Trileaflet aortic valve. No aortic valve regurgitation. Mild tricuspid valve regurgitation. PAP42 mmHG. Pulmonic valve not well visualized. Normal pericardium without effusion. Normal ascending aorta dimension. MEASUREMENTS (Male / Female) Normal Values 2D ECHO LV Diastolic Diameter PLAX 5.0 cm 4.2 - 5.9 / 3.9 - 5.3 cm LV Systolic Diameter PLAX 2.1 cm LV Fractional Shortening PLAX 57.7 % IVS Diastolic Thickness 1.1 cm 0.6 - 1.0 / 0.6 - 0.9 cm LVPW Diastolic Thickness 1.1 cm 0.6 - 1.0 / 0.6 - 0.9 cm RV Internal Dim ED PLAX 3.2 cm Aortic Root Diameter 3.4 cm LA Systolic Diameter LX 3.1 cm 3.0 - 4.0 / 2.7 - 3.8 cm DOPPLER TR Peak Velocity 285.0 cm/s TR Peak Gradient 32.5 mmHg FINDINGS Left Ventricle EF 60 %. Grade I/IV diastolic dysfunction (abnormal relaxation filling pattern), normal to mildly elevated filling pressures. Right Ventricle The right ventricle is normal in size and function. Right Atrium The right atrium is mildly enlarged. Left Atrium The left atrium is mildly enlarged. Mitral Valve Morphologically normal mitral valve. Trace mitral valve regurgitation. Aortic Valve Trileaflet aortic valve. No aortic valve regurgitation. Tricuspid Valve Morphologically normal tricuspid valve. Mild tricuspid valve regurgitation. PAP42 mmHG. Pulmonic Valve Pulmonic valve not well visualized. Pericardium Normal pericardium without effusion. Aorta Normal ascending aorta dimension. Daquan Meredith (Electronically Signed) Final Date: 10 February 2017 17:34
--- NOTE | 2017-02-10 18:37 | Nuclear Medicine Report ---
EXERCISE CARDIOLITE GATED SPECT PERFUSION STUDY DATE: 02/10/2017 PROCEDURE: EXERCISE CARDIOLITE GATED SPECT PERFUSION STUDY. INITIAL IMPRESSIONS: 1. 56-YEAR-OLD MAN WITH ATYPICAL CHEST PAIN. 2. ABNORMAL EKG. 3. HYPERTENSION. FINAL IMPRESSION: NORMAL EXERCISE CARDIOLITE GATED SPECT PERFUSION STUDY I. DESCRIPTION OF PROCEDURE: The patient received 10.0 mCi of Technetium-99m Cardiolite IV and rest imaging was obtained in the routine manner 20 minutes later. The patient then walked for 7 minutes and 23 seconds and achieved peak heart rate of 145, which is 87% of his predicted maximal heart rate. At peak exercise, 30.0 mCi of Technetium-99m Cardiolite IV was injected and stress imaging was obta ined in the routine manner 20 minutes later. Serial electrocardiograms were performed. The initial blood pressure was 148/90 and it was 192/80 immediately post exercise. The EKG showed normal sinus r hythm with preserved airways and ST-T-wave changes. With exercise, no diagnostic EKG changes occurre d. No arrhythmias. Tomographic imaging demonstrates homogeneous uptake of radioisotope in all segments. There is no sis dence for ischemia or scar. Gated SPECT imaging demonstrates normal wall motion and thickening in al l segments. The calculated ejection fraction is 59%. III: FINAL IMPRESSION: 1. CLINICALLY AND ELECTROCARDIOGRAPHICALLY NEGATIVE. 2. HYPERTENSIVE BLOOD PRESSURE RESPONSE TO EXERCISE (192/80 AT [facility]). 3. GOOD WORK CAPACITY 8.9 METS FOR SCINTIGRAPHICALLY NORMAL PERFUSION STUDY IV. DISPOSITION: The patient should be reassured regarding the lack of any evidence for significant coronary artery disease at this time. He had no chest pain or diagnostic EKG changes and tomographi c imaging is normal. In addition, ventricular function is well preserved with ejection fraction of 5 9%. This is a low risk scan. Continued medical therapy and risk factor modification recommended. Procedure performed and interpreted at [facility] Department of Radiology. CC: Omega Echevarria MD
[2017-02-11 07:12] LABS: Hemoglobin A1 (Alkaline) 97.5 % (96.5-98.5); Hemoglobin A2 (Alkaline) 2.5 % (1.5-3.5)
== END 2017-02-10 17:53 | disposition home or self-care (01) ==
LOC: EDUNIT# → N.ED 13:28 → N.EDINP 13:28 → SUATTDRO 15:35 → N.TELES 18:02
PROVIDERS: ADMIT Internal Medicine; ATTEND Internal Medicine

== ENCOUNTER 2017-05-25 23:28 | Inpatient (IN) ==
[2017-05-25] MEDS ORDERED: PANTOPRAZOLE 40 MG VIAL IV STA (23:56)
[2017-05-25] MEDS ORDERED: ONDANSETRON 4 MG/2 ML VIAL IV STA (23:56)
[2017-05-25] MEDS ORDERED: SODIUM CHLORIDE 0.9% 500 ML IV STA (23:56)
[2017-05-25] MEDS ORDERED: ALUM/MAG/SIMETH/LIDO VISC 1:1 30 ML BOTTLE PO STA (23:56)
[2017-05-26 00:17] LABS: Basophils % 0.1 % (0.0-0.8); Hematocrit 32.3 VOL% (42.0-52.0); Hemoglobin 11.4 GM/DL (14.0-18.0); Immature Granulocytes % 0.5 %; Immature Granulocytes Absolute 0.05 #; Lymphocytes # 0.6 10*3/uL (1.4-4.0); Lymphocytes % 6.3 % (21.2-54.2); Mean Corpuscular HGB Conc 35.3 GM/DL (32-36); Mean Corpuscular Hemoglobin 27 PG (27-34); Mean Platelet Volume 10.3 FL (9.6-12.0); Monocytes # 0.4 10*3/uL (0.11-0.8); Monocytes % 3.8 % (1.7-12.7); Neutrophils # 8.9 10*3/uL (1.4-7.4); Neutrophils % 89.3 % (38.7-73.9); Platelet Count 218 T/CUMM (130-400); Red Blood Count 4.25 MC/CUMM (3.8-5.5); Red Cell Distribution Width 13.2 % (9.3-17.3)
[2017-05-26] MEDS ORDERED: ALUM/MAG/SIMETH/LIDO VISC 1:1 30 ML BOTTLE PO ONE (00:23)
[2017-05-26] MEDS ORDERED: ONDANSETRON 4 MG/2 ML VIAL ONE ×2 (00:23→01:08)
[2017-05-26] MEDS ORDERED: PANTOPRAZOLE 40 MG VIAL IV ONE (00:23)
[2017-05-26 01:05] LABS: Alanine Aminotransferase 19 U/L (16-61); Albumin 3.7 G/DL (3.4-5.0); Alkaline Phosphatase 88 U/L (45-117); Amylase 38 U/L (25-115); Aspartate Amino Transferase 15 U/L (0-37); Blood Urea Nitrogen 15 MG/DL (7-18); Glucose 252 MG/DL (74-106); Magnesium 1.5 MG/DL (1.8-2.4); Osmolality,Calculated 286.5 MOS/KG (273-304); Potassium 3.2 MMOL/L (3.5-5.1); Sodium 139 MMOL/L (136-145); Total Protein 7.6 G/DL (6.4-8.3); Troponin I Only < 0.015 NG/ML (0.00-0.045)
[2017-05-26] MEDS ORDERED: MAGNESIUM SULF RIDER 2 GM in PREMIX 1 EACH IV STA (01:07)
[2017-05-26] MEDS ORDERED: POTASSIUM CHLORIDE 20 MEQ TABLET PO STA (01:07)
[2017-05-26 01:09] LABS: Apearance,Urine CLEAR (Clear); Bilirubin,Urine Negative (Negative); Blood, Urine Moderate mg/dL (Negative); Glucose,Urine (UA) 150 mg/dL (Negative); Ketones,Urine 20 mg/dL (Negative); Mucus,Urine Many /LPF (Occasional); Nitrite,Urine Negative (Negative); Protein,Urine 100 MG/DL; RBC,Urine 4 /HPF (0-4); Squamous Epithelial Cell,Urine Occasional /HPF (0-10); Urine Color Yellow (Yellow); Urine Specific Gravity 1.032 (1.001-1.035); Urine Urobilinogen < 2.0 EU/DL (0.2-1.0); WBC,Urine 3 /HPF (0-6)
[2017-05-26] MEDS ORDERED: SODIUM CHLORIDE 0.9% 500 ML IV STA (01:11)
[2017-05-26] MEDS ORDERED: POTASSIUM CHLORIDE 20 MEQ TABLET PO ONE (01:32)
[2017-05-26] MEDS ORDERED: MAGNESIUM SULF RIDER 50 ML IV ONE (01:32)
[2017-05-26] MEDS ORDERED: metroNIDAZOLE 500 MG TABLET PO STA (02:19)
[2017-05-26] MEDS ORDERED: LEVOFLOXACIN 750 MG TABLET PO STA (02:19)
[2017-05-26] MEDS ORDERED: CIPROFLOXACIN 400 MG/200 ML PREMIX IV ONE (02:42)
[2017-05-26] MEDS ORDERED: LEVOFLOXACIN 750 MG TABLET ONE (02:42)
[2017-05-26] MEDS ORDERED: metroNIDAZOLE 500 MG/100 ML PREMIX IV ONE (02:42)
[2017-05-26] MEDS: metroNIDAZOLE INJ 500 MG in PREMIX 1 EACH IV SCH ×3 (02:51→17:35)
[2017-05-26] MEDS ORDERED: HYDROmorphone 2 MG/1 ML VIAL IV STA (03:01)
[2017-05-26] MEDS ORDERED: HYDROmorphone 2 MG/1 ML VIAL ONE (03:03)
[2017-05-26 03:11] LABS: INR 1.1; Partial Thromboplastin Time 27.9 SECS (0-40)
[2017-05-26] MEDS ORDERED: HYDROmorphone 2 MG/1 ML VIAL IV PRN (03:30)
[2017-05-26] MEDS ORDERED: ONDANSETRON 4 MG/2 ML VIAL IV PRN ×2 (03:30→04:18)
[2017-05-26] MEDS ORDERED: GLUCAGON 1 MG VIAL IM PRN (04:18)
[2017-05-26] MEDS ORDERED: DEXTROSE 50% 25 GM/50 ML VIAL IV PRN (04:18)
[2017-05-26] MEDS: CIPROFLOXACIN INJ 400 MG in PREMIX 1 EACH IV SCH ×2 (04:20→14:03)
[2017-05-26] MEDS ORDERED: HYDROmorphone 2 MG/1 ML VIAL IV ONE (05:17)
[2017-05-26 06:22] LABS: Basophils % 0.1 % (0.0-0.8); Hematocrit 31.1 VOL% (42.0-52.0); Hemoglobin 10.6 GM/DL (14.0-18.0); Immature Granulocytes % 0.5 %; Immature Granulocytes Absolute 0.04 #; Lymphocytes # 0.6 10*3/uL (1.4-4.0); Lymphocytes % 7.3 % (21.2-54.2); Mean Corpuscular HGB Conc 34.1 GM/DL (32-36); Mean Corpuscular Hemoglobin 26 PG (27-34); Mean Corpuscular Volume 76.8 FL (87-102); Mean Platelet Volume 10.4 FL (9.6-12.0); Monocytes # 0.3 10*3/uL (0.11-0.8); Monocytes % 3.5 % (1.7-12.7); Neutrophils # 6.8 10*3/uL (1.4-7.4); Neutrophils % 88.6 % (38.7-73.9); Platelet Count 223 T/CUMM (130-400); Red Blood Count 4.05 MC/CUMM (3.8-5.5); Red Cell Distribution Width 13.4 % (9.3-17.3); White Blood Count 7.7 T/CUMM (4-12)
[2017-05-26] MEDS: SODIUM CHLORIDE 0.9% 1,000 ML IV SCH ×2 (06:29→12:08)
[2017-05-26 06:54] LABS: Albumin 3.5 G/DL (3.4-5.0); Bilirubin,Total 0.8 MG/DL (0.2-1.0); Calcium 8.6 MG/DL (8.5-10.1); Osmolality,Calculated 281.5 MOS/KG (273-304); Potassium 4.1 MMOL/L (3.5-5.1); Total Protein 6.9 G/DL (6.4-8.3)
[2017-05-26] MEDS: INSULIN REGULAR 100 UNIT/ML SUBCUT SCH ×3 (08:45→17:01)
[2017-05-26] MEDS: MORPHINE ER 15 MG TABLET PO SCH (08:46)
[2017-05-26] MEDS: tiZANidine 4 MG TABLET PO SCH (08:47)
[2017-05-26] MEDS: GABAPENTIN 300 MG CAPSULE PO SCH ×3 (08:47→20:04)
[2017-05-26] MEDS: PANTOPRAZOLE 40 MG VIAL IV SCH (08:47)
[2017-05-26] MEDS: oxyCODONE/ACETAMINOPHEN 5-325 MG TABLET PO SCH ×2 (08:47→20:04)
[2017-05-26] MEDS: ENOXAPARIN 40 MG/0.4 ML SYRINGE SUBCUT SCH (08:47)
[2017-05-26] MEDS: LISINOPRIL 10 MG TABLET PO SCH ×2 (08:47→08:49)
[2017-05-26] MEDS ORDERED: ENOXAPARIN 40 MG/0.4 ML SYRINGE SUBCUT SCH (09:00)
[2017-05-26] MEDS ORDERED: MAGNESIUM SULF RIDER 2 GM in PREMIX 1 EACH IV PRN (16:46)
[2017-05-27] MEDS: SODIUM CHLORIDE 0.9% 1,000 ML IV SCH ×4 (01:32→22:08)
[2017-05-27] MEDS: metroNIDAZOLE INJ 500 MG in PREMIX 1 EACH IV SCH ×2 (01:33→09:30)
[2017-05-27] MEDS: tiZANidine 4 MG TABLET PO SCH (09:00)
[2017-05-27] MEDS: GABAPENTIN 300 MG CAPSULE PO SCH ×3 (09:00→20:15)
[2017-05-27] MEDS: MORPHINE ER 15 MG TABLET PO SCH (09:00)
[2017-05-27] MEDS: ENOXAPARIN 40 MG/0.4 ML SYRINGE SUBCUT SCH (09:00)
[2017-05-27] MEDS: oxyCODONE/ACETAMINOPHEN 5-325 MG TABLET PO SCH ×2 (09:00→20:15)
[2017-05-27] MEDS: PANTOPRAZOLE 40 MG VIAL IV SCH (09:00)
[2017-05-27 09:56] LABS: Magnesium 2.2 MG/DL (1.8-2.4); Risk Ratio 2.72; VLDL CHOLESTEROL 17.4 MG/DL
[2017-05-27 11:41] LABS: Basophils % 0.3 % (0.0-0.8); Eosinophils % 0.6 % (0.00-10.9); Hemoglobin 10.7 GM/DL (14.0-18.0); Immature Granulocytes % 0.7 %; Immature Granulocytes Absolute 0.05 #; Lymphocytes # 2.5 10*3/uL (1.4-4.0); Lymphocytes % 35.3 % (21.2-54.2); Mean Corpuscular HGB Conc 33.4 GM/DL (32-36); Mean Corpuscular Hemoglobin 26 PG (27-34); Mean Corpuscular Volume 78.4 FL (87-102); Mean Platelet Volume 11.2 FL (9.6-12.0); Monocytes # 0.7 10*3/uL (0.11-0.8); Monocytes % 9.7 % (1.7-12.7); NRBC # 0.02 10*3/uL; Neutrophils # 3.8 10*3/uL (1.4-7.4); Neutrophils % 53.4 % (38.7-73.9); Platelet Count 212 T/CUMM (130-400); Red Blood Count 4.08 MC/CUMM (3.8-5.5); Red Cell Distribution Width 13.7 % (9.3-17.3); White Blood Count 7.1 T/CUMM (4-12)
[2017-05-27] MEDS: CIPROFLOXACIN INJ 400 MG in PREMIX 1 EACH IV SCH (11:52)
[2017-05-27] MEDS: LISINOPRIL 10 MG TABLET PO SCH (12:05)
[2017-05-28] MEDS: SODIUM CHLORIDE 0.9% 1,000 ML IV SCH (05:35)
[2017-05-28] MEDS: ENOXAPARIN 40 MG/0.4 ML SYRINGE SUBCUT SCH (09:46)
[2017-05-28] MEDS: tiZANidine 4 MG TABLET PO SCH (09:46)
[2017-05-28] MEDS: MORPHINE ER 15 MG TABLET PO SCH (09:47)
[2017-05-28] MEDS: GABAPENTIN 300 MG CAPSULE PO SCH (09:47)
[2017-05-28] MEDS: LISINOPRIL 10 MG TABLET PO SCH (09:47)
[2017-05-28] MEDS: oxyCODONE/ACETAMINOPHEN 5-325 MG TABLET PO SCH (09:47)
[2017-05-28] MEDS: PANTOPRAZOLE 40 MG VIAL IV SCH (09:48)
[2017-05-28 10:43] VITALS: BP 162/93
== END 2017-05-28 12:25 | disposition home or self-care (01) | DRG 391 ==
LOC: N.ED 23:28 → N.EDINP 05-26 02:31 → SUATTDRO 05-26 02:31 → N.5E 05-26 03:15
PROVIDERS: ADMIT Internal Medicine; ATTEND Internal Medicine